=== PATIENT | male | born 1960 | race Hispanic/Latino ===

== ENCOUNTER 2023-10-22 06:20 | Day surgery (SDC) | payer MEDICAID ==
[2023-10-19 14:48] LABS: BASOPHILS # (AUTO) 0.04 K/uL (0.00-0.20); BASOPHILS % (AUTO) 0.5 % (0.0-5.0); EOSINOPHILS # (AUTO) 0.14 K/uL (0.00-0.70); EOSINOPHILS % (AUTO) 1.9 % (0.0-8.0); HEMATOCRIT 36.9 % (42-54); IMMATURE GRANULOCYTE ABSOLUTE 0.03 K/uL (0-1); LYMPHOCYTES % (AUTO) 27.2 % (21.0-51.0); MEAN CORPUSCULAR HEMOGLOBIN 32.6 pg (27.0-33.0); MEAN CORPUSCULAR HGB CONC 34.1 g/dL (32.0-36.0); MEAN CORPUSCULAR VOLUME 95.3 fL (79-99); MONOCYTES # (AUTO) 0.9 K/uL (0.1-1.0); MONOCYTES % (AUTO) 11.3 % (3.0-13.0); NEUTROPHILS # (AUTO) 4.4 K/uL (1.8-7.7); NEUTROPHILS % (AUTO) 58.7 % (40.0-77.0); PLATELET COUNT (AUTO) 241 K/uL (130-400); RED BLOOD CELL COUNT(AUTO) 3.87 MIL/uL (4.50-6.20); RED CELL DISTRIBUTION WIDTH 15.6 % (11.0-15.5); WHITE BLOOD COUNT (AUTO) 7.5 K/uL (4.8-10.8)
[2023-10-19 15:07] LABS: CREATININE 1.1 mg/dL (0.5-1.3); POTASSIUM 4.1 mmol/L (3.5-5.1)
[2023-10-19 15:37] VITALS: BP 121/75; PULSE 71; RESP 17
[~2023-10-22] VITALS: Ht 170.2 cm; Wt 96.7 kg
[2023-10-22] VITALS (17 sets, daily range): BP systolic 93–115; BP diastolic 47–72; PULSE 52–79; RESP 12–20
[~2023-10-22 06:20] MED LIST: AMLO-258 PO; LISI10TA24 PO
[2023-10-22] MEDS: HYDROMORPHONE 1 MG INJ ONE (07:29)
[2023-10-22] MEDS: ACETAMINOPHEN 1,000 MG/100 ML VIAL IV ONE (07:29)
[2023-10-22] MEDS ORDERED: PROPOFOL 10 MG/ML 20ML VIAL IV ONE (07:33)
[2023-10-22] MEDS ORDERED: LIDOCAINE PF 100MG/5ML (2%) SYRINGE 5ML ONE (07:33)
[2023-10-22] MEDS ORDERED: MIDAZOLAM HCL 1 MG/ML 2ML VIAL ONE (07:34)
[2023-10-22] MEDS ORDERED: FENTANYL CITRATE PF 50 MCG/1 ML 2ML VIAL ONE (07:34)
[2023-10-22] MEDS ORDERED: ROCURONIUM BROMIDE 10MG/1ML 5ML VL ONE (07:34)
[2023-10-22] MEDS: CLINDAMYCIN IVPB 900MG/50ML 50 ML IV ONE (07:56)
[2023-10-22] MEDS: LACTATED RINGERS 1000ML 1,000 ML IV ONE (07:57)
[2023-10-22] MEDS ORDERED: ONDANSETRON 4MG INJ ONE (08:32)
[2023-10-22] MEDS ORDERED: DEXAMETHASONE SOD PHOSPHATE 4 MG/ML 1ML VIAL ONE (08:32)
[2023-10-22] MEDS ORDERED: GLYCOPYRROLATE 0.2 MG/ML 5 ML VIAL ONE (08:44)
[2023-10-22] MEDS ORDERED: NEOSTIGMINE METHYLSULFATE 1MG/ML IV ONE (08:44)
[2023-10-22] MEDS ORDERED: BUPIVACAINE/PF 0.25% 30ML VIAL IJ ONE (08:45)
[2023-10-22] MEDS ORDERED: PHENYLEPHRINE HCL 10 MG/ML 1ML VIAL IV ONE (08:47)
[2023-10-22] MEDS: BUPIVACAINE/PF 0.25% 30ML VIAL IJ ONE (08:51)
[2023-10-22] MEDS: MORPHINE 4 MG SYG ONE (10:48)
[2023-10-22] MEDS: KETOROLAC 30MG VIAL (30MG/ML) ONE (10:48)
== END 2023-10-22 11:40 | disposition home or self-care (01) ==
LOC: DAH 06:20
PROVIDERS: ATTEND Surgery
DX: K40.90 Unilateral inguinal hernia, without obstruction or gangrene, not specified as recurrent (principal); I10 Essential (primary) hypertension; F32.A Depression, unspecified; Z88.0 Allergy status to penicillin; Z79.899 Other long term (current) drug therapy
CPT/HCPCS: 80048; 85025; 36415; 49650; 93005; A6260; J1100; A4663; J7030; A4344; A4215 ×2; J7120; J3010; J1170; J0665 ×2; J3490 ×5; J2250; J2405; J2270; J1885; J2710; J2371; C1781; A4930; A5120; A4222; A4221; A4216; A4223 ×2; A4600; S2900; J2001; J2704

== ENCOUNTER 2024-01-28 05:33 | Day surgery (SDC) | payer MEDICAID ==
[2024-01-24 10:51] LABS: BASOPHILS # (AUTO) 0.02 K/uL (0.00-0.20); BASOPHILS % (AUTO) 0.3 % (0.0-5.0); EOSINOPHILS # (AUTO) 0.27 K/uL (0.00-0.70); EOSINOPHILS % (AUTO) 3.6 % (0.0-8.0); HEMATOCRIT 42.9 % (42-54); IMMATURE GRANULOCYTE ABSOLUTE 0.04 K/uL (0-1); LYMPHOCYTES # (AUTO) 2.9 K/uL (1.0-4.8); LYMPHOCYTES % (AUTO) 39.1 % (21.0-51.0); MEAN CORPUSCULAR HEMOGLOBIN 31.1 pg (27.0-33.0); MEAN CORPUSCULAR HGB CONC 33.1 g/dL (32.0-36.0); MEAN CORPUSCULAR VOLUME 94.1 fL (79-99); MONOCYTES # (AUTO) 0.8 K/uL (0.1-1.0); MONOCYTES % (AUTO) 10.3 % (3.0-13.0); NEUTROPHILS # (AUTO) 3.4 K/uL (1.8-7.7); NEUTROPHILS % (AUTO) 46.2 % (40.0-77.0); PLATELET COUNT (AUTO) 227 K/uL (130-400); RED BLOOD CELL COUNT(AUTO) 4.56 MIL/uL (4.50-6.20); RED CELL DISTRIBUTION WIDTH 13.8 % (11.0-15.5); WHITE BLOOD COUNT (AUTO) 7.4 K/uL (4.8-10.8)
--- NOTE | 2024-01-24 10:58 | EKG ---
[facility] Test Date: 2024-01-24 Test Time: 11:37:59 Pat Name: TJ COLLINS Department: [facility] Room: Gender: M Diet Assistant: [id number] : 1960 Requested By: MOSES COTE Order Number: [id number] Reading MD: Ross Collins Measurements Intervals [place]cher Rate: 77 P: 57 IA: 172 QRS: -17 QRSD: 110 T: 34 QT: 409 QTc: 462 Interpretive Statements Sinus rhythm Compared to ECG 10/22/2023 07:52:31 No significant changes Electronically Signed On 01-24-2024 18:36:10 DINING SERVICES DIRECTOR by Ross Collins Please click the below link to view image of tracing.
[2024-01-24 11:01] VITALS: BP 126/76; PULSE 76; RESP 18; TEMP 98.8
[2024-01-24 11:05] LABS: INR 1.01 (0.85-1.15); PROTHROMBIN TIME 10.9 SEC (9.6-11.6)
[2024-01-24 11:06] LABS: ALBUMIN 3.7 g/dL (3.5-5.0); BILIRUBIN,TOTAL 0.8 mg/dL (0.2-1.0); CREATININE 1.2 mg/dL (0.5-1.3); PARTIAL THROMBOPLASTIN TIME 25.9 SEC (26.3-35.5); POTASSIUM 3.8 mmol/L (3.5-5.1); TOTAL PROTEIN, SERUM 8.3 g/dL (6.0-8.3)
[2024-01-28] VITALS (10 sets, daily range): BP systolic 97–136; BP diastolic 58–78; PULSE 69–82; RESP 15–19; TEMP 97.4–98.2
[~2024-01-28] VITALS: Ht 170.2 cm; Wt 99.8 kg
[2024-01-28] MEDS: LACTATED RINGERS 1000ML 1,000 ML IV ONE (06:52)
[2024-01-28] MEDS ORDERED: MIDAZOLAM HCL 1 MG/ML 2ML VIAL ONE (07:12)
[2024-01-28] MEDS ORDERED: FENTanyl CITRate PF 50 MCG/1 ML 2ML VIAL ONE (07:13)
[2024-01-28] MEDS ORDERED: proPOFol 10 MG/ML 20ML VIAL IV ONE ×2 (07:13→07:56)
[2024-01-28] MEDS ORDERED: ondanSETRON 4MG INJ ONE (07:14)
[2024-01-28] MEDS ORDERED: MEROPENEM 1 GM VIAL ONE (07:25)
[2024-01-28] MEDS ORDERED: SUCCINYLCHOLINE CHLORIDE 20 MG/ML 10 ML VIAL ONE (07:26)
[2024-01-28] MEDS ORDERED: rocuRONium bROMide 10MG/1ML 5ML VL ONE (07:27)
[2024-01-28] MEDS ORDERED: GLYCOPYRROLATE 0.2 MG/ML 5 ML VIAL ONE (07:28)
[2024-01-28] MEDS ORDERED: NEOSTIGMINE METHYLSULFATE 1MG/ML IV ONE (07:28)
[2024-01-28] MEDS: MEROPENEM 1 GM VIAL IVPB ONE (07:35)
[2024-01-28] MEDS ORDERED: BUPIvacaine/PF 0.25% 30ML VIAL IJ ONE (07:36)
[2024-01-28] MEDS ORDERED: LIDOCAINE 1%-EPI 1:100,000 20 ML VIAL ONE (07:37)
--- NOTE | 2024-01-28 08:11 | OP ---
Operative Note: DATE OF PROCEDURE: 01/28/24 SURGEON: MOSES COTE MD COTTON PICKER OPERATOR: [None] ANESTHESIA: [Mac plus local] PREOPERATIVE DIAGNOSIS: [Perianal mass] POSTOPERATIVE DIAGNOSIS: [Same] PROCEDURE: [Anal examination under anesthesia. Excision of left lateral perianal mass. Fulguration of intra-anal condyloma like lesion.] ESTIMATED BLOOD LOSS: [None] INDICATIONS: [This is a 63-year-old male presents to clinic complaining of the presence of a perianal mass. On exam he had the appearance of a condyloma like lesion. After assessment and a colonoscopy that revealed no other lesions, he was advised to undergo an excision of this mass and examination under anesthesia. Risks were abrasions and alternatives were explained in detail to the patient who agreed to consent.] DESCRIPTION OF PROCEDURE: [The patient was identified in the holding area transferred to the OR placed supine on the operative table. IV antibiotics were given. After sedation was obtained, he was placed in lithotomy position with great care taken to pad all pressure points. Time-out was conducted, and an anal block performed with 0.25% Marcaine and 1% lidocaine with epinephrine. Careful examination under anesthesia of the anus and anal canal revealed hemorrhoids, and a posterior small condyloma like lesion intra anally, this was fulgurated. A left lateral mass was identified in the external hemorrhoid bundle. It was a small condyloma like in nature. Mass was excised with Bovie cautery, and a single suture of catgut chromic was placed at the base. Specimen was passed to the back table. Area was inspected for hemostasis and noted to be thorough. Was irrigated and aspirated until clear. Sterile dressing was applied. Were no complications. Patient was transferred in stable condition to recovery. All counts were correct, I was present and scrubbed for the entire case.] MOSES JARRETT MD Jan 28, 2024 08:11
--- NOTE | 2024-01-28 09:03 | NUR ---
Patient aox4. Denies c/o pain or discomfort. Surgical dressing clean, dry and intact. Voiced understanding to surgical site precautions and follow up expectations. Ambulated to bathroom with standby assist. Voided large amount of clear urine. PIV discontinued with catheter tip intact. Full and complete Discharge instructions given to Patient and Friend All questions answered. W/C to POV with Friend to Home.
== END 2024-01-28 09:00 ==
LOC: DAH 05:33
PROVIDERS: ATTEND Surgery
DX: K62.0 Anal polyp (principal); K62.1 Rectal polyp; K62.89 Other specified diseases of anus and rectum; K62.5 Hemorrhage of anus and rectum; I10 Essential (primary) hypertension; F32.A Depression, unspecified; Z79.01 Long term (current) use of anticoagulants; Z99.2 Dependence on renal dialysis; Z88.0 Allergy status to penicillin; Z79.899 Other long term (current) drug therapy
CPT/HCPCS: 80053; 85025; 85610; 85730; 36415; 93005; 45190; 88305; A6260; A4663; J7120 ×2; J3010; J3490 ×4; J0330; J0665 ×2; J2250; J2704 ×2; J2405; J2710; J2185 ×2; A4649 ×2; A4215; A4223; A4222; A4221

== ENCOUNTER 2024-01-29 03:47 | Emergency (ER) | payer MEDICAID ==
[~2024-01-29] VITALS: Ht 157.5 cm; Wt 97.1 kg
[2024-01-29 03:50] VITALS: BP 140/92; PULSE 83; RESP 20; TEMP 98
--- NOTE | 2024-01-29 04:24 | ERN ---
ED Note History of Present Illness Stated Complaint: C/O BLEEDING FROM ABSCESS, OUTPATIENT PROCEDURE Chief Complaint: Post-Op Problem Time Seen by MD: 03:59 Dictation: This is a 63-year-old male presents to clinic of Dr. Jennifer Lutz complaining of the presence of a perianal mass. On exam he had the appearance of a condyloma like lesion. After assessment and a colonoscopy that revealed no othe r lesions, he was advised to undergo an excision of this mass and examination under anesthesia. Patient underwent the procedure yesterday-01/28/2024 as follows DESCRIPTION OF PROCEDURE: Careful examination under anesthesia of the anus and anal canal revealed hemorrhoids, and a posterior small condyloma like lesion intra anally, this was fulgurated. A left lateral mass was identified in the external hemorrhoid bundle. It was a small condyloma like in nature. Mass was excised with Bovie cautery, and a single suture of catgut chromic was placed at the base. Specimen was passed to the back table. Area was inspected for hemostasis and noted to be thorough. Was irrigated and aspirated until clear. Sterile dressing was applied. Were no complications. He comes into the emergency room today complaining of bleeding. Temperature 97.1 pulse 83, respiratory rate 20 blood pressure 140/92 with a pulse oximetry of 98% on room air His chronic medical problems include hypertension Allergies: Coded Allergies: Penicillins (Unverified Allergy, Unknown, 01/24/24) Home Meds Reported Medications Amlodipine Besylate (Amlodipine Besylate) 10 Mg Tablet, 1 TAB PO DAILY 10/19/23 Lisinopril (Lisinopril) 10 Mg Tablet, 1 TAB PO AM 10/19/23 Past Medical History Past Medical History: Hypertension Surgical History: Other Surgical History Other: ABSCESS TO LEFT BUTTOCK SX Family History: Negative RN Note Reviewed/Agreed w/PFSH: Yes Review of System Dictation Constitutional: Negative for fever,chills, and weight loss Eyes: Negative for injury, pain,redness, and discharge ENT: Negative for injury,pain or swelling Cardiovascular: Negative for chest pain, palpitations, and edema Respiratory: Negative for shortness of breath, cough, and wheezing, Abdomen/GI: Negative for abdominal pain, nausea, vomiting, diarrhea, and constipation Back: Negative for injury and pain : Negative for injury, bleeding and discharge MS/Extremity: Negative for injury and deformity Skin: Negative for rash, and discoloration Neuro: Negative for headache, weakness, numbness, tingling, and seizure Psych: Negative for suicide ideation, homicidal ideation, and hallucinations Initial Vital Sign VS Vital Signs Date Time Temp Pulse Resp B/P (MAP) Pulse Ox O2 Delivery O2 Flow Rate FiO2 01/29/24 03:50 98.1 83 20 140/92 97 Room Air Physical Exam Dictation I have reviewed the chart, and requested diagnostic tests and plan of care and by the time the nurse reach the patient to pursue blood work he had eloped ED Course ED Course Vital Signs Date Time Temp Pulse Resp B/P (MAP) Pulse Ox O2 Delivery O2 Flow Rate FiO2 01/29/24 03:50 98.1 83 20 140/92 97 Room Air We will perform diagnostic labs, advanced imaging and administer medications a ccording to the patient's complaint. Once the results are available, will review and personally interpreted the labs to rule out any acute life- threatening emergency the trach require immediate intervention and treatment. I will then re-evaluate the patient after treatment and diagnostic exams have return to determine whether the patient requires any further testing, can safely be discharged home or need further admission to hospital for additional treatment and evaluation. Patient had eloped without notifying anyone. Medical Decision Making MDM MDM: Differential diagnosis: Bleeding from the incision site Rationale: Tests considered and ordered secondary to shared decision making include: Previous outside records reviewed: Old ER visits. Risk of complication and/or morbidity or mortality of patient management: None Medications-Per medication reconciliation Need for hospitalization: Patient does not meet criteria for hospitalization. Need for emergency major/minor surgery: No There are no social concerns with this patient. Prescription drug management Prescriptions will include symptomatic care Patient's prior external medical records from other ER visits were reviewed by me as indicated. Prior testing and results from previous visits were reviewed. Prior tests were taken into account with medical decision making and resource utilization, independent historian/historians were used to obtain complete medical history. I independently interpreted the test that were performed, results were reviewed by me and considered findings on radiology if ordered. Medical management and examination interpretation discussions were had by me with other qualified healthcare professionals as indicated for the patient's care. Problem List Problem List: (1) External hemorrhoids (2) Perianal mass (3) Postoperative bleeding from incision DX & DISP Disposition: Other(Comment) (Patient eloped) Departure Impression: Primary Impression: External hemorrhoids Additional Impressions: Postoperative bleeding from incision, Perianal mass Condition: Stable Additional Instructions: The patient left the emergency room without noticed despite multiple attempts to reach the patient for re-evaluation and discussion of diagnostic exams, patient did not respond to any calls. The charge nurse has been informed of the situation noting that the patient did not answer and departed from our facility Referrals: LISHA DELCID MD (PCP) CHANDA LUTZ MD Jan 29, 2024 04:23
--- NOTE | 2024-01-29 05:06 | NUR ---
CALLED FOR PT IN LOBBY TO DRAW BLOOD.; NO RESPONSE; PT NOT FOUND IN LOBBY. Addendum: 01/29/24 at 0508 by ASAD PT REFUSED BLOOD DRAW; PER TECH, PT STATED WOULD GO SEE DR. DAVID ASHTON.
== END 2024-01-29 05:09 | disposition left against medical advice (07) ==
LOC: EDH 03:47
DX: K64.4 Residual hemorrhoidal skin tags (principal); L76.22 Postprocedural hemorrhage of skin and subcutaneous tissue following other procedure; I10 Essential (primary) hypertension; Z88.0 Allergy status to penicillin
CPT/HCPCS: 99281